=== PATIENT | female | born 2000 | race Caucasian/White ===

== ENCOUNTER 2024-04-16 12:38 | Outpatient (OUT) | payer OTHER, SELFPAY ==
[2024-04-16 13:03] LABS: Basophils Percent Auto 0.6 % (0.2-2.0); Eosinophils Absolute Auto 0.1 10^3/uL (0.0-0.7); Eosinophils Percent Auto 1.3 % (0.9-7.0); Hematocrit 38.4 % (36.0-48.0); Hemoglobin 13.4 g/dL (12.0-16.0); Immature Granulocytes Abs Auto 0.02 10^3/uL (0.00-0.03); Immature Granulocytes Pct Auto 0.3 % (0.0-0.5); Lymphocytes Absolute Auto 1.8 10^3/uL (1.2-3.8); Lymphocytes Percent Auto 26.7 % (20.5-60.0); Mean Corpuscular HGB Conc 34.9 g/dL (29.9-35.2); Mean Corpuscular Volume 88.9 fL (81.0-99.0); Mean Platelet Volume 9.3 fL (9.5-13.5); Monocytes Absolute Auto 0.6 10^3/uL (0.3-0.8); Monocytes Percent Auto 8.6 % (1.7-12.0); Neutrophils Absolute Auto 4.2 10^3/uL (1.4-6.5); Neutrophils Percent Auto 62.5 % (43.0-75.0); Platelet Count 275 10^3/uL (150-450); Red Blood Count 4.32 10^6/uL (4.20-5.40); Red Cell Distribution Width 11.6 % (11.0-15.0); White Blood Count 6.8 10^3/uL (4.0-11.0)
[2024-04-16 14:19] LABS: Estimated Average Glucose 94 mg/dL; Glycohemoglobin A1C 4.9 % (4.5-6.2)
[2024-04-16 14:44] LABS: Alanine Aminotransferase 16 U/L (14-59); Albumin Globulin Ratio 0.9; Albumin Level 3.6 g/dL (3.4-5.0); Alkaline Phosphatase 92 U/L (46-116); Anion Gap 11.3; Aspartate Amino Transferase 18 U/L (15-37); BUN Creatinine Ratio 14.1; Bilirubin Total 0.5 mg/dL (0.2-1.0); Calcium 8.9 mg/dL (8.5-10.1); Carbon Dioxide 26.9 mmol/L (21.0-32.0); Chloride 103 mmol/L (98-107); Chol HDL Ratio 2.7; Cholesterol 180 mg/dL (<=200); Estimated GFR (African America >60 (>=60 mL/min/1.73m^2); Estimated GFR (Non-African Ame >60 (>=60 mL/min/1.73m^2); Free T3 3.32 pg/mL (2.18-3.98); Glucose 88 mg/dL (74-106); HDL Cholesterol 66 mg/dL (40-60); Potassium 4.2 mmol/L (3.5-5.1); Sodium 137 mmol/L (136-145); Thyroid Stimulating Hormone 1.516 uIU/mL (0.358-3.740); Total Protein 7.6 g/dL (6.4-8.2); Triglycerides 80 mg/dL (<=150)
== END 2024-04-16 12:39 | disposition home or self-care (01) ==
LOC: LAB 12:42
PROVIDERS: PCP Family Medicine; Visit Provider Family Medicine
DX: Z00.00 Encounter for general adult medical examination without abnormal findings (principal)
CPT/HCPCS: 36415; 80053; 80061; 83036; 84436; 84443; 84481; 85025

== ENCOUNTER 2024-04-22 10:34 | Outpatient (OUT) | payer OTHER, SELFPAY ==
--- NOTE | 2024-04-22 10:37 | US_ITS ---
The [address] [address] Patient Name: BILLY DAWKINS MRN: [id number] date: 2000 Sex: F Assigned Patient Location: [place] Current Patient Location: US Accession/Order Number: [id number] Exam Date: 04/22/2024 13:50 Report Date: 04/22/2024 13:54 At the request of: ESEQUIEL SALINAS MD Procedure: US right upper quadrant LIMITED RIGHT UPPER QUADRANT ABDOMINAL ULTRASOUND CLINICAL HISTORY: Chronic right upper quadrant abdominal pain COMPARISON: 07/18/2019 The gallbladder is physiologically distended without shadowing calculi, wall thickening or pericholecystic fluid. No intrahepatic biliary dilatation is evident. The common duct is still prominent measuring 8-9 mm. No intraluminal filling defects are identified involving the imaged segment. The liver is normal in echogenicity. No intrahepatic masses are seen. There is appropriate hepatopetal flow within the main portal vein. The pancreas shows no significant sonographic abnormality. Cursory evaluation of the right kidney reveals no hydronephrosis or fluid within Nolasco's pouch. US/US right upper quadrant IMPRESSION: NO GALLBLADDER PATHOLOGY. CONTINUED BILIARY PROMINENCE OF UNCERTAIN ETIOLOGY. Impression dictated by: Kimberly Vanessa M.D.04/22/2024 1:54 PM Dictation Location: [place] [address] Electronically authenticated by: [id number] Y Date: 04/22/2024 13:54
--- OUTSIDE RECORDS SUMMARY | 2024-04-22 10:38 | XMS_ITS | CCD ---
Author Organization [facility] Inform ion Partnership [facility] Care Team Providers Care Laboratory Apparatus Glass Blower Name Role Phone SAL GODWIN Admitting Unavailable SAL GODWIN Attending Unavailable ESEQUIEL BLUM Primary Care Unavailable SAL GODWIN Consulting Unavailable SAL GODWIN Admitting Unavailable SAL GODWIN Attending Unavailable ESEQUIEL BLUM Primary Care Unavailable SAL GODWIN Consulting Unavailable MITA WAY V Consulting Unavailable HEATHER PITT Attending Unavailable HEATHER PITT Referring Unavailable ESEQUIEL BLUM Primary Care Unavailable HEATHER PITT Referring Unavailable ESEQUIEL BLUM Primary Care Unavailable Esequiel Blum MD Primary Care Provider [phone] Medications Current Medications Medication Drug Class(es) Dates Sig (Normalized) Sig (Original) Ethinyl Estradiol / norgestimate (1 source) Progestin, Estrogen Start: 08-21-2023 take 1 tablet by mouth once daily Norgestim-Eth Estrad Triphasic 0.18/0.215/0.25 MG-25 MCG TABS Take 1 tablet by mouth daily 3 packet 3 08/21/2023 Active Problems Active Problems Problem Classification Problem Date Documented Date Episodic/Chronic Abdominal pain (4 sources) Epigastric pain; Translations: [EPIGASTRIC PAIN] Onset: 07-18-2019 Episodic Immunizations and screening for infectious disease (2 sources) Encounter for screening for infections with a predominantly sexual mode of transmission; Translations: [Patient encounter status] Onset: 08-21-2023 08-21-2023 Episodic Past or Other Problems Problem Classification Problem Date Documented Da te Episodic/Chronic Other screening for suspected conditions (not mental disorders or infectious disease) (2 sources) Other specified abnormal findings of blood chemistry; Translations: [Inconclusive mammogram] Onset: 07-19-2019 Episodic Results Test Name Value Interpretation Reference Range Facil ity Chlamydia/GC DNA, TPon 08-21 Chlamydia Probe, TP Negative Normal NEG [facility] Comment on above: Result Comment: CHLA MYDIA TRACHOMATIS DNA not detected by nucleic acid amplification. This test is intended for medical purposes only and is not valid for the evaluation of suspected sexual abuse or for other forensic purposes. In certain contexts, culture may be required to meet applicable laws and regulations for diagnosis of C. trachomatis and N. gonorrhoeae infections. Per 2014 CDC recommendations, this test does not include confirmation of positive results by an alternative nucleic acid target. Performed By: #### C YTCGP #### [employer] [facility] [place], [place] [id number] Transfusion Aide: Black Avila MD Gonorrhea Probe, TP Negative Normal NEG [facility] Comment on above: Result Comment: NEIS SERIA GONORRHOEAE DNA not detected by nucleic acid amplification. This test is intended for medical purposes only and is not valid for the evaluation of suspected sexual abuse or for other forensic purposes. In certain contexts, culture may be required to meet applicable laws and regulations for diagnosis of C. trachomatis and N. gonorrhoeae infections. Per 2014 CDC recommendations, this test does not include confirmation of positive results by an alternative nucleic acid target. Performed By: #### C YTCGP #### [employer] [address] [place] [address] [id number] Transfusion Aide: Black Avila MD Cytology Reporton 08-21-2023 Cytology report Cyto stain.thin prep Doc (Cvx/Vag) (NOTE) Path Number: [id number] DIAGNOSIS Imaged ThinPrep Pap - Cervical (1 monolayer slide): Specimen Adequacy: Satisfactory for evaluation. - Endocervical/transform ation zone component present. Descriptive Diagnosis: Negative for intraepithelial lesion or malignancy. Cytotech Screener: EY Electronically Signed Out Gaetano HAWLEY(ASCP) ey/08/28/2023 Source of Specimen: A: Imaged ThinPrep Pap - Cervical (1 monolayer slide) HPV Reflex?............... 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 The Pap smear is a screening test primarily for squamous epithelial lesions, which is subject to both false negative and false positive results. Your patient should be reminded to consult you immediately if she experiences any suspicious signs or symptoms, regardless of her Pap smear result. GYNECOLOGIC CYTOLOGY REPORT Patient Name: BILLY DAWKINS [facility] Rec: [id number] [facility] [employer] [facility] ANATOMIC PATHOLOGY [address] [place] [address]. [place], [place] [address] Normal [facility] US BREAST LIMITED LEFTon US BREAST LIMITED LEFT EXAMINATION: TARGETED ULTRASOUND OF THE LEFT BREAST 08/29/2022 COMPARISON: None. HISTORY: ORDERING SYSTEM PROVIDED HISTORY: Breast density FINDINGS: Ultrasound to the left breast demonstrates no solid or cystic mass. Left axilla unremarkable. IMPRESSION: No ultrasonographic evidence of malignancy. Negative exam should not preclude the use of tissue biopsy if indicated clinically. BIRADS: BIRADS - CATEGORY 1 Negative. Normal interval follow-up is recommended in 12 months. OVERALL ASSESSMENT - NEGATIVE A letter of notification will be sent to the patient regarding the results. The [employer] recommends annual mammograms for women 40 years and older. Interpreted by: Zhang García DO Signed by: Zhang García DO 08/29/22 Final result Normal [facility] US SINGLE QUAD RT UPPERon US SINGLE QUAD RT UPPER EXAMINATION: US SINGLE QUAD RT UPPER HISTORY: Disorder of gallbladder COMPARISON: No relevant comparison available. FINDINGS: The pancreas is normal in appearance with no focal mass. The liver is normal in size, contour and echotexture with no focal mass. The liver measures 16.2 cm in length. Flow is identified within the main portal vein with a velocity of 36 cm/s. The gallbladder is normal in size. The gallbladder wall measures 2 mm, normal. No pericholecystic fluid, cholelithiasis or gallbladder sludge. The common bile duct measures 2.5 mm proximally but up to 6.50 m distally. The right kidney is normal in size, contour and echotexture with no focal solid cortical mass or hydronephrosis. The right kidney measures 8.9 x 5.4 x 3.2 cm a volume of 79.7 mL. IMPRESSION: Dilation of the common bile duct with no focal obstruction observed Electronically authenticated by: MITA WAY Date: 2019-07-18 08:26 Normal [facility] AMYLASEon 07-17-2019 Amylase [Catalytic activity/Vol] 74 U/L Normal 31-110 [facility] Comment on above: Performed By: #### L LULA RIVERA, CMP #### [facility] [address] [place], [place] [id number] Cora Kimberly CBC AUTO DIFFon 07-17-2019 Basophils (Bld) [#/Vol] 0.0 103/ul Normal 0.0-0.1 [facility] Comment on above: Performed By: #### C BC #### [facility] [address] [place], [place] [id number] Cora Kimberly Basophils/100 WBC (Bld) 0.5 % Normal 0.2-2.0 [facility] Comment on above: Performed By: #### C BC #### [facility] [address] [place], [place] [phone] Cora Kimberly Eosinophils (Bld) [#/Vol] 0.1 103/ul Normal 0.0-0.7 [facility] Comment on above: Performed By: #### C BC #### [facility] [address] [place], [place] [address] Cora Kimberly Eosinophils/100 WBC (Bld) 1.6 % Normal 0.9-7.0 [facility] Comment on above: Performed By: #### C BC #### [facility] [address] [place], [place] [address] Cora Kimberly Erythrocyte distribution width (RBC) [Ratio] 11.8 % Normal 11.0-15.0 [facility] Comment on above: Performed By: #### C BC #### [facility] [address] [place], [place] [address] Cora Kimberly Hematocrit (Bld) [Volume fraction] 38.5 % Normal 36.0-48.0 [facility] Comment on above: Performed By: #### C BC #### [facility] [address] [id number] Cora Kimberly Hemoglobin (Bld) [Mass/Vol] 13.1 g/dL Normal 12.0-16.0 [facility] Comment on above: Performed By: #### C BC #### [facility] [address] [id number] Cora Kimberly IG # 0.01 10e3/ul Normal 0.00-0.03 [facility] Comment on above: Performed By: #### C BC #### [facility] [address] [address] Cora Kimberly IG % 0.2 % Normal 0.0-0.5 [facility] Comment on above: Performed By: #### C BC #### [facility] [address] [place] [address] Cora Kimberly Lymphocytes (Bld) [#/Vol] 1.8 103/ul Normal 1.2-3.8 [facility] Comment on above: Performed By: #### C BC #### [facility] [address] [place], [place] [address] Cora Kimberly Lymphocytes/100 WBC (Bld) 31.4 % Normal 20.5-60.0 [facility] Comment on above: Performed By: #### C BC #### [facility] [address] [place], [place] [address] Cora Kimberly MANUAL DIFF REQ NO Normal [facility] Comment on above: Performed By: #### C BC #### [facility] [address] [place], [place] [address] Cora Kimberly MCH (RBC) [Entitic mass] 29.6 pg Normal 26.7-34.0 [facility] Comment on above: Performed By: #### C BC #### [facility] [address] [place], [place] [address] Cora Kimberly MCHC (RBC) [Mass/Vol] 34.0 g/dL Normal 29.9-35.2 [facility] Comment on above: Performed By: #### C BC #### [facility] [address] [place], [place] [address] Cora Kimberly MCV (RBC) [Entitic vol] 87.1 fL Normal 79.1-95.6 [facility] Comment on above: Performed By: #### C BC #### [facility] [address] [place] [address] Cora Kimberly Monocytes (Bld) [#/Vol] 0.6 103/ul Normal 0.3-0.8 [facility] Comment on above: Performed By: #### C BC #### [facility] [address] [place], [place] [address] Cora Kimberly Monocytes/100 WBC (Bld) 10.2 % Normal 1.7-12.0 [facility] Comment on above: Performed By: #### C BC #### [facility] [address] [place], [place] [address] Cora Kimberly Neutrophils (Bld) [#/Vol] 3.2 103/ul Normal 1.4-6.5 [facility] Comment on above: Performed By: #### C BC #### [facility] [address] [place], [place] [address] Cora Kimberly Neutrophils/100 WBC (Bld) 56.1 % Normal 43.0-75.0 [facility] Comment on above: Performed By: #### C BC #### [facility] [address] [place], [place] [address] Cora Kimberly Platelet mean volume (Bld) [Entitic vol] 9.4 fL Critically low 9.5-13.5 [facility] Comment on above: Performed By: #### C BC #### [facility] [address] [place] [address] Cora Kimberly Platelets (Bld) [#/Vol] 269 103/ul Normal 150-450 [facility] Comment on above: Performed By: #### C BC #### [facility] [address] [place], [place] [address] Cora Kimberly RBC (Bld) [#/Vol] 4.42 106/ul Normal 3.40-5.30 [facility] Comment on above: Performed By: #### C BC #### [facility] [address] [place], [place] [address] Corashilpi Harris WBC (Bld) [#/Vol] 5.7 103/ul Normal 4.0-11.0 [facility] Comment on above: Performed By: #### C BC #### [facility] [address] [place], [place] [address] Cora Harris H PYLORI ANTIBODYon 07-17-19 20 H PYLORI Negative Normal NEGATIVE [facility] Comment on above: Performed By: #### H PYL #### [facility] [address] [place] [address] Cora Kimberly LIPASEon 07-17-2019 Lipase [Catalytic activity/Vol] 340.0 U/L Critically high 23.0-300.0 [facility] Comment on above: Performed By: #### L LULA RIVERA, CMP #### [facility] [address] [place], [place] [address] Corashilpi Harris PREG HCG QUALon 07-17-2019 , QUAL Negative Normal NEGATIVE [facility] Comment on above: Performed By: #### P REG #### [facility] [address] [place], [place] [address] Cora Harris PROF 14(COMP METB)on 020 Age - Reported Normal [facility] Comment on above: Performed By: #### L LULA RIVERA, CMP #### [facility] [address] [place], [place] [address] Corashilpi Lundyen Albumin [Mass/Vol] 4.1 g/dL Normal 3.5-5.0 [facility] Comment on above: Performed By: #### L LULA RIVERA, CMP #### [facility] [address] [place], [place] [address] Cora Kimberly Albumin/Globulin [Mass ratio] 1.1 {ratio} Normal [facility] Comment on above: Performed By: #### L LULA RIVERA, CMP #### [facility] [address] [place], [place] [address] Cora Kimberly ALP [Catalytic activity/Vol] 86 U/L Normal 65-260 [facility] Comment on above: Performed By: #### L LULA RIVERA, CMP #### [facility] [address] [place], [place] [address] Cora Kimberly ALT [Catalytic activity/Vol] 50 U/L Normal 9-52 [facility] Comment on above: Performed By: #### L LULA RIVERA, CMP #### [facility] [address] [place], [place] [address] Cora Kimberly Anion gap [Moles/Vol] 12.0 mmol/L Normal [facility] Comment on above: Performed By: #### L LULA RIVERA, CMP #### [facility] [address] [address] Cora Kimberly AST [Catalytic activity/Vol] 50 U/L Critically high 14-36 [facility] Comment on above: Performed By: #### L LULA RIVERA, CMP #### [facility] [address] [address] Cora Kimberly Bilirubin Ql (U) 0.4 mg/dL Normal 0.2-1.3 [facility] Comment on above: Performed By: #### L LULA RIVERA, CMP #### [facility] [address] [id number] Cora Kimberly Calcium [Mass/Vol] 8.9 mg/dL Normal 8.4-10.2 [facility] Comment on above: Performed By: #### L LULA RIVERA, CMP #### [facility] [address] [id number] Cora Kimberly Chloride [Moles/Vol] 101 mmol/L Normal 98-107 [facility] Comment on above: Performed By: #### L LULA RIVERA, CMP #### [facility] [address] [address] Cora Kimberly CO2 [Moles/Vol] 27.4 mmol/L Normal 22.0-30.0 [facility] Comment on above: Performed By: #### L LULA RIVERA, CMP #### [facility] [address] [id number] Cora Kimberly Creatinine [Mass/Vol] 0.82 mg/dL Normal 0.52-1.04 [facility] Comment on above: Performed By: #### L LULA RIVERA, CMP #### [facility] [address] [id number] Cora Kimberly EGFR-AF TRINIDADIAN Normal >=60 [facility] Comment on above: Performed By: #### L LULA RIVERA, CMP #### [facility] [address] [address] Cora Kimberly EGFR-NON AF TRINIDADIAN Normal >=60 [facility] Comment on above: Performed By: #### L LULA RIVERA, CMP #### [facility] [address] [address] Cora Kimberly Globulin (S) [Mass/Vol] 3.6 g/dL Normal [facility] Comment on above: Performed By: #### L LULA RIVERA, CMP #### [facility] [address] [address] Cora Kimberly Glucose [Mass/Vol] 156 mg/dL Critically high 74-106 [facility] Comment on above: Performed By: #### L LULA RIVERA, CMP #### [facility] [address] [address] Cora Kimberly Potassium [Moles/Vol] 3.4 mmol/L Normal 3.4-5.0 [facility] Comment on above: Performed By: #### L LULA RIVERA, CMP #### [facility] [address] [address] Cora Kimberly Protein [Mass/Vol] 7.7 g/dL Normal 6.1-8.2 [facility] Comment on above: Performed By: #### L LULA RIVERA, CMP #### [facility] [address] [address] Cora Kimberly Sodium [Moles/Vol] 137 mmol/L Normal 137-145 [facility] Comment on above: Performed By: #### L LULA RIVERA, CMP #### [facility] [address] [address] Cora Kimberly Urea nitrogen [Mass/Vol] 12.0 mg/dL Normal 6.4-19.3 [facility] Comment on above: Performed By: #### L LULA RIVERA, CMP #### [facility] [address] [place], [place] [address] Cora Harris Urea nitrogen/Creatinin e [Mass ratio] 14.6 mg/mg Normal [facility] Comment on above: Performed By: #### L NICOLE, LULA, CMP #### [facility] [address] [place], [place] [address] Cora Harris Encounters Encounter Date Encounter Type Care Provider Facility Start: 08-21-2023 End: 08-21-2023 ambulatory HEATHER PITT [facility] Start: 08-21-2023 Encounter for gynecological examination (general) (routine) without abnormal findings [facility] Start: 08-21-2023 End: 08-21-2023 Patient encounter procedure Esequiel Blum MD Work Phone: [facility] Start: 08-21-2023 End: 08-21-2023 Subsequent hospital visit by physician Esequiel Blum MD Work Phone: [facility] Laboratory Comment on above: Screen for STD (sexu ally transmitted disease); Encounter for well woman exam with routine gynecological exam Start: 08-29-2022 End: 08-31-2022 ambulatory [facility]ATHER PITT [facility] Start: 07-18-2019 End: 07-19-2019 Patient encounter procedure SAL GODWIN Facility:[facility] Start: 07-17-2019 End: 07-17-2019 Patient encounter procedure SAL GODWIN Facility:[facility] Procedures Date Procedure Procedure Detail Performing Clinician Start: 08-21-2023 Iaad ia chlamydia trachomatis Heather Pitt APRN - MIKE Work Phone: Plan of Treatment Date Care Activity Detail Author Start: 08-22-2024 End: 08-22-2024 Patient encounter procedure 08/22/2024 10:10 AM EDT Office Visit [facility] Part of [address] [place] [address] Heather Pitt APRN - CNM [address] [place] [address] [address] [place] [address] yearly [facility] Part of [facility] Comment on above: yearly Start: 08-20-2024 Screening for Chlamy david trachomatis Chlamydia/GC screen [facility] Start: 09-14-2023 Influenza vaccination Flu vaccine (# 1) [facility] Start: 08-24-2023 Depression Screen Depression Screen [facility] Start: 2022 Screening for malign ant neoplasm of cervix Pap smear [facility] Start: 10-14-2022 COVID-19 Vaccine ( season) COVID-19 Vaccine () [facility] Start: 01-01-2020 Hepatitis C screening Hepatitis C sc reen [facility] Start: 2016 HIV screening HIV screen [facility] Start: 2012 DTaP/Tdap/Td vaccine (6 - Tdap) DTaP/Tdap/Td vaccine (6 - Tdap) [facility] Start: 2012 HPV vaccine (1 - 2-d ose series) HPV vaccine (1 - 2-dose series) [facility] C.trachomatis N.gonorrhoeae DNA, Thin Prep C.trachomatis N.gonorrhoeae DNA, Thin Prep Microbiology Routine Screen for STD (sexually transmitted disease) 08/21/2023 1:59 PM EDT [facility] End: 08-21-2023 Cytopathology procedure, preparation of smear, genital source PAP SMEAR Lab Routine Encounter for well woman exam with routine gynecological exam 1 Occurrences starting 08/21/2023 until 08/21/2023 [facility] Comment on above: 1 Occurrences starti ng 08/21/2023 until 08/21/2023 Payers Date Payer Category Payer Private Health Insurance [id number] 2001 Unknown [id number] 2001 Unknown [id number] 1966 Unknown [id number] 1966 Unknown [id number] 1959 Unknown [id number] 1959 Unknown [id number] Social History Date Type Detail Facility [facility]: [facility] Start: 08-23-2022 Tobacco use and exposure Smoke less tobacco non-user [facility] Start: 08-21-2023 Alcohol intake Current drinke r of alcohol (finding) [facility] Start: 08-21-2023 History of Social function [facility] Start: 08-21-2023 Tobacco use panel [facility] Patient Health Questionnaire 9 item (PHQ-9) total score [Reported] 0 [facility] Start: 08-23-2022 Alcohol Comment rare [facility] Start: 2001 Sex Assigned At Not on file B ON [facility] Evaluation note Note Date & Type Note Facility Evaluation note Diagnosis Screen for STD (sexually transmitted disease) Screening examination for venereal disease Encounter for well woman exam with routine gynecological exam documented in this [facility] Purpose Family History No Family History Records FoundNo Family History Records Found Advance Directives No Advanced Directives Records FoundNo Advanced Directives Records Found Additional Source Comments INFORMATION SOURCE (unrecogn ized section and content) DATE CREATED AUTHOR 10/07/2019 [facility] DATE CREATED AUTHOR AUTHOR'S ORGANIZ ATION 08/28/2023 [facility] Care Teams (unrecognized sec tion and content) Laboratory Apparatus [employer] Relationship Specialty Start Date End Date Esequiel Blum MD [address] [place] [address] PCP - General Family Medicine 08/23/22 FOR RECORDS PERTAINING TO PATIENTS WHO ARE OR HAVE BEEN ENROLLED IN A CHEMICAL DEPENDENCY/SUBSTANCEABUSE PROGRAM, SOME INFORMATION MAY BE OMITTED. This clinical summary was aggregated from multiple sources. Caution should be exercised in using it in the provision of clinical care. This summary normalizes information from multiple sources, and as a consequence, information in this document may materially change the coding, format and clinical context of patient data. In addition, data may be omitted in some cases. CLINICAL DECISIONS SHOULD BE BASED ON THE PRIMARY CLINICAL RECORDS. [employer] [facility]. provides no warranty or guarantee of the accuracy or completeness of information in this document.
== END 2024-04-22 10:35 | disposition home or self-care (01) ==
LOC: US 10:34
PROVIDERS: PCP Family Medicine; Visit Provider Family Medicine
DX: R10.11 Right upper quadrant pain (principal)
CPT/HCPCS: 76705